=== PATIENT | female | born 1945 | race Caucasian/White ===

== ENCOUNTER 2022-10-23 09:16 | Outpatient (CLI) | payer MEDICARE | END 2022-10-23 09:17 | disposition home or self-care (01) | LOC: BICMAMMO 09:16 | PROVIDERS: ATTEND Family Medicine | DX: R92.8 Other abnormal and inconclusive findings on diagnostic imaging of breast (principal); N60.02 Solitary cyst of left breast; Z80.3 Family history of malignant neoplasm of breast | CPT/HCPCS: 76642; 77065; G0279 ==

== ENCOUNTER 2024-09-06 15:44 | Outpatient (CLI) | payer MEDICARE | END 2024-09-06 15:45 | disposition home or self-care (01) | LOC: SCSRAD 15:44 | PROVIDERS: ATTEND Otolaryngology | DX: R05.9 Cough, unspecified (principal) | CPT/HCPCS: 71046 ==